=== PATIENT | male | born 1960 | race Caucasian/White ===

== ENCOUNTER 2021-01-19 10:06 | Outpatient (CLI) | payer OTHER | END 2021-01-19 10:07 | disposition home or self-care (01) | LOC: CSHRAD 10:06 | PROVIDERS: ATTEND Neurological Surgery | DX: M48.02 Spinal stenosis, cervical region (principal); M47.812 Spondylosis without myelopathy or radiculopathy, cervical region | CPT/HCPCS: 72050 ==